=== PATIENT | male | born 1990 | race Caucasian/White ===

== ENCOUNTER 2021-08-22 14:05 | Emergency (ER) | payer OTHER, SELFPAY ==
[2021-08-22 14:45] VITALS: BP 133/78; PULSE 65; RESP 18; TEMP 37.4; O2SAT 95; BMI 22.4
--- NOTE | 2021-08-22 16:34 | CRLHL7_ITS ---
For Patients: As a result of the Century Cures Act, medical imaging exams and procedure reports are released immediately into your electronic medical record. You may view this report before your referring provider. If you have questions, please contact your health care provider. INDICATION: Blood in stool for 1 month. Worsening today.. TECHNIQUE: CT abdomen and pelvis acquired with 81 cc Isovue 370 IV contrast. COMPARISON: None. FINDINGS: Lower chest: Unremarkable. Liver: Unremarkable. Normal in size and attenuation. No suspicious masses. Gallbladder and bile ducts: Unremarkable. No stones or inflammation. No biliary dilatation. Pancreas: Unremarkable. No mass or inflammation. Spleen: Unremarkable. Normal in size. No masses. Adrenal glands: Unremarkable. No nodules. Kidneys: Unremarkable. No suspicious masses, stones, or hydronephrosis. GI tract: Unremarkable. Normal in caliber. No sign of mass or inflammation. Normal appendix. Vasculature: Abdominal aorta is normal in caliber. Mesenteric arteries are patent. Lymph nodes: No lymphadenopathy. Peritoneum/Abdominal Wall: Unremarkable. No sign of mass or infiltration. No free air or significant free fluid. Pelvis: Unremarkable. Bones: Unremarkable for age. IMPRESSION: No acute intra-abdominal process identified. Please note that all CT scans at this facility use dose modulation, iterative reconstruction, and/or weight-based dosing when appropriate to reduce radiation dose to as low as reasonably achievable. Dictated by Alessandro Castellon MD @ 08/22/2021 6:14:16 PM (Electronically Signed)
[2021-08-22 17:10] LABS: Basophils Absolute Auto 0.08 K/uL (0.00-0.30); Basophils Percent Auto 0.9 % (0.0-3.0); Eosinophils Percent Auto 8.1 % (0.0-7.0); Hematocrit 42.8 % (37.0-53.0); Hemoglobin* 14.8 gm/dL (13.5-17.5); Immature Granulocytes Abs Auto 0.01 K/uL (0.00-0.30); Lymphocytes Absolute Auto 3.05 K/uL (0.90-2.90); Lymphocytes Percent Auto 34.7 % (20-44); Mean Corpuscular HGB Conc 35 gm/dL (32-36); Mean Corpuscular Hemoglobin 29 pg (26-34); Mean Corpuscular Volume 83 fL (80-100); Neutrophils Absolute Auto 4.41 K/uL (1.7-7.0); Neutrophils Percent Auto 50.2 % (42.0-72.0); Platelet Count* 249 K/uL (140-440); RDW Coefficient of Variation % 12.9 % (11.5-15.5); Red Blood Count 5.14 m/uL (4.30-5.90); White Blood Count* 8.79 K/uL (4.50-11.00)
[2021-08-22 17:29] LABS: Slide Review Reflex No
[2021-08-22 17:34] LABS: Chloride* 106 mmol/L (96-114)
[2021-08-22 17:35] LABS: Albumin* 4.2 g/dL (3.3-5.0); Potassium* 3.9 mmol/L (3.6-5.1); Sodium* 138 mmol/L (135-149)
[2021-08-22 17:37] LABS: Creatinine* 1.1 mg/dL (0.5-1.5); Est. Creatinine Clearance* 101.11; Estimated Glomerular Filt Rate 91 ml/min
[2021-08-22 17:38] LABS: Alanine Aminotransferase* 19 U/L (4-50); Alkaline Phosphatase* 55 U/L (40-150); Aspartate Amino Transferase* 23 U/L (12-35); Bilirubin Direct* 0.3 mg/dL (0.0-0.5); Bilirubin Total* 0.7 mg/dL (0.1-1.5); Blood Urea Nitrogen* 16 mg/dL (5-24); Calcium* 9.1 mg/dL (8.4-10.6); Carbon Dioxide* 23 mmol/L (20-32); Glucose* 97 mg/dL (60-115); Total Protein* 6.8 g/dL (6.0-8.3)
[2021-08-22 17:42] LABS: C Reactive Protein* < 0.5 mg/dL (0.5-1.0)
--- NOTE | 2021-08-22 18:22 | ED.GENADULT ---
HPI - General Adult General Chief complaint: GI Bleed Stated complaint: Blood in stool Time Seen by Provider: 08/22/21 16:15 History of Present Illness HPI narrative: 31-year-old male coming in today complaining of rectal bleeding. He states that he had a bowel movement today and he had a good amount of blood in the toilet bowl really scared him was when he wiped toilet paper was saturated in blood. He states that this has happened in the past more than once, however if never been this much blood. He states that he generally has very loose stools, usually once a day. He states that when he has to go he has to get to a toilet right away because he has terrible cramping any generally can not hold it in. This has been happening for quite some time. He denies any nausea or vomiting. Denies any weight loss but states that he is usually thin rosamaria and cannot gain weight. He denies any chest pain or abdominal pain unless he is having the cramps described above. He states that sometimes his appetite comes and goes but currently has good appetite. He denies any family history of colon cancer or GI issues that he is aware of he has never been diagnosed or has any family history of Crohn's disease or ulcerative colitis. Related Data Home Medications Medication Instructions Recorded Confirmed No Known Home Medications 08/22/21 08/22/21 Allergies Allergy/AdvReac Type Severity Reaction Status Date / Time No Known Drug Allergies Allergy Verified 08/22/21 14:51 Review of Systems Status of ROS: Reports: 10 or more systems reviewed and unremarkable except as noted in History and below Exam Narrative: Exam Narrative: Well-nourished well-developed patient in no acute distress. Alert and oriented. Answers questions appropriately. Mood and affect are appropriate. Thoughts are goal oriented and rational. No tangential or magical thinking noted. Patient speaks in full sentences without needing to catch his breath. HEENT: Normocephalic atraumatic. Pupils are equally round reactive to light. Extraocular muscles are intact. Conjunctivae are moist without any icterus noted. Moist mucous membranes. Posterior pharynx is normal. Neck is soft without any lymphadenopathy or thyromegaly. No masses are appreciated. Cardiovascular: Heart is regular rate and rhythm S1 and S2 are present without any murmurs. Lungs: Clear to auscultation bilaterally no wheezes rhonchi or rales are appreciated. Patient takes deep breaths without any discomfort. Abdomen: Soft and nontender nondistended with normal bowel sounds. No guarding or rebound. No masses or organomegaly appreciated. Extremities: Bilateral lower extremities are without edema. Normal DP and PT pulses. Skin: Well perfused without any obvious rashes. Rectal exam: Normal rectal tone, no hemorrhoids, no active bleeding noted. Masses appreciated. Const: Vital Signs, click to edit/add: Vital Signs - 24 hr 08/22/21 14:45 Temperature 99.4 F Pulse Rate [Right Pulse Oximeter] 65 Respiratory Rate 18 Blood Pressure [Ri ght Upper Arm] 133/78 Pulse Oximetry 95 Course Vital Signs Vital signs: Initial Vital Signs Temperature 99.4 F 08/22/21 14:45 Temperature Source Temporal Artery Scan 08/22/21 14:45 Pulse Rate 65 08/22/21 14:45 Pulse Rhythm 08/22/21 14:45 Respiratory Rate 18 08/22/21 14:45 Blood Pressure 133/78 08/22/21 14:45 Blood Pressure Mean 96 08/22/21 14:45 Blood Pressure Position Sitting 08/22/21 14:45 Pulse Oximetry 95 08/22/21 14:45 Oxygen Delivery Method 08/22/21 14:45 Vital Signs Temperature 99.4 F 08/22/21 14:45 Pulse Rate 65 08/22/21 14:45 Respiratory Rate 18 08/22/21 14:45 Blood Pressure 133/78 08/22/21 14:45 Pulse Oximetry 95 08/22/21 14:45 Temperature 99.4 F 08/22/21 14:45 Pulse Rate 65 08/22/21 14:45 Respiratory Rate 18 08/22/21 14:45 Blood Pressure 133/78 08/22/21 14:45 Pulse Oximetry 95 08/22/21 14:45 Medical Decision Making MDM Narrative Medical decision making narrative: 31-year-old male with rectal bleeding, workup unremarkable today. Given the duration of his symptoms and what he describes with diarrhea and cramping in concerned about possibility of Crohn's disease. Patient will be scheduled for outpatient colonoscopy and follow up with primary care provider. Lab Data Lab results reviewed: Yes I reviewed the patient's lab results Labs: Lab Results 08/22/21 08/22/21 08/22/21 Range/Units 17:00 17:00 17:00 WBC 8.79 (4.50-11.00) K/uL RBC 5.14 (4.30-5.90) m/uL Hgb 14.8 (13.5-17.5) gm/dL Hct 42.8 (37.0-53.0) % MCV 83 (80-100) fL MCH 29 (26-34) pg MCHC 35 (32-36) gm/dL RDW Coeff of Lexy 12.9 (11.5-15.5) % Plt Count 249 (140-440) K/uL Neut % (Auto) 50.2 (42.0-72.0) % Lymph % (Auto) 34.7 (20-44) % [place] % (Auto) 6.0 (0.0-11.0) % Eos % (Auto) 8.1 H (0.0-7.0) % Baso % (Auto) 0.9 (0.0-3.0) % Neut # (Auto) 4.41 (1.7-7.0) K/uL Lymph # (Auto) 3.05 H (0.90-2.90) K/uL [place] # (Auto) 0.50 (0.00-0.90) K/UL Eos # (Auto) 0.70 H (0.00-0.50) K/uL Baso # (Auto) 0.08 (0.00-0.30) K/uL Abs Immat Gran (auto) 0.01 (0.00-0.30) K/uL Sodium 138 (135-149) mmol/L Potassium 3.9 (3.6-5.1) mmol/L Chloride 106 (96-114) mmol/L Carbon Dioxide 23 (20-32) mmol/L BUN 16 (5-24) mg/dL Creatinine 1.1 (0.5-1.5) mg/dL Estimated Creat Clear 101.11 Estimated GFR 91 ml/min Glucose 97 (60-115) mg/dL Calcium 9.1 (8.4-10.6) mg/dL Total Bilirubin 0.7 (0.1-1.5) mg/dL Direct Bilirubin 0.3 (0.0-0.5) mg/dL AST 23 (12-35) U/L ALT 19 (4-50) U/L Alkaline Phosphatase 55 (40-150) U/L C-Reactive Protein < 0.5 L (0.5-1.0) mg/dL Total Protein 6.8 (6.0-8.3) g/dL Albumin 4.2 (3.3-5.0) g/dL Vitamin B12 569 (243-894) pg/mL Imaging Data CT scan - abdomen: Attestation: I have reviewed the pertinent imaging results. Radiologist's impression: FINDINGS: Lower chest: Unremarkable. Liver: Unremarkable. Normal in size and attenuation. No suspicious masses. Gallbladder and bile ducts: Unremarkable. No stones or inflammation. No biliary dilatation. Pancreas: Unremarkable. No mass or inflammation. Spleen: Unremarkable. Normal in size. No masses. Adrenal glands: Unremarkable. No nodules. Kidneys: Unremarkable. No suspicious masses, stones, or hydronephrosis. GI tract: Unremarkable. Normal in caliber. No sign of mass or inflammation. Normal appendix. Vasculature: Abdominal aorta is normal in caliber. Mesenteric arteries are patent. Lymph nodes: No lymphadenopathy. Peritoneum/Abdominal Wall: Unremarkable. No sign of mass or infiltration. No free air or significant free fluid. Pelvis: Unremarkable. Bones: Unremarkable for age. IMPRESSION: No acute intra-abdominal process identified. Discharge Plan Discharge Clinical Impression: Bright red rectal bleeding Patient Disposition: Home, Self-Care Condition: Stable Additional Instructions: You will need to have an outpatient colonoscopy. If you have other episodes where there was significant amount of bleeding return for evaluation. Prescriptions: No Action No Known Home Medications 0RF Follow Up/Referrals: Provider,Not a Local [Primary Care Provider] - Stand Alone Forms: [employer] Info Instructions
[2021-08-22 18:27] LABS: Vitamin B12* 569 pg/mL (243-894)
[2021-08-22 18:44] VITALS: BP 133/78; PULSE 65; RESP 18; TEMP 37.4; O2SAT 95
[2021-08-22 18:45] VITALS: BP 112/70; PULSE 72; RESP 18; TEMP 37.4
--- NOTE | 2021-08-22 18:51 | ED.NURSE ---
Left voicemail for Endo Sales Administrator to call Pt to schedule outpatient colonoscopy.
[2021-08-22 18:54] LABS: Iron* 93 ug/dL (49-181)
[2021-08-22 19:12] LABS: Vitamin D 25 Hydroxy* 37 ng/mL (30-80)
--- NOTE | 2021-08-25 14:37 | ED.NURSE ---
in chart attempting to print order colonoscopy order for endo
== END 2021-08-22 18:45 | disposition home or self-care (01) ==
PROVIDERS: Emergency Provider Family Medicine
DX: K62.5 Hemorrhage of anus and rectum (principal)
CPT/HCPCS: 36415; 74177; 80048; 80076; 82306; 82607; 83540; 85025; 86140; 99284; Q9967

== ENCOUNTER 2021-09-06 07:12 | Outpatient (CLI) | payer OTHER, SELFPAY | END 2021-09-06 07:13 | disposition home or self-care (01) | LOC: OP CLINIC 07:13 | PROVIDERS: Visit Provider Surgery | DX: R19.7 Diarrhea, unspecified (principal); K92.1 Melena | CPT/HCPCS: 45380; 88305; 99153; J2250; J3010 ==

== ENCOUNTER 2022-06-10 22:26 | Emergency (ER) | payer SELFPAY ==
[2022-06-10 22:32] VITALS: BP 125/80; PULSE 69; RESP 16; TEMP 36.7; O2SAT 96; BMI 23.1
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
[2022-06-10 22:57] VITALS: BP 125/80; PULSE 69; RESP 16; TEMP 36.7
[2022-06-10 23:02] VITALS: BP 118/76; PULSE 71; RESP 16; TEMP 36.9; O2SAT 87
== END 2022-06-10 23:03 | disposition home or self-care (01) ==
LOC: ED 22:59
PROVIDERS: Emergency Provider Emergency Medicine Emergency Medical Services
DX: S70.01XA Contusion of right hip, initial encounter (principal); V00.848A Other accident with standing micro-mobility pedestrian conveyance, initial encounter
CPT/HCPCS: 99283; 99284

== ENCOUNTER 2023-02-03 14:17 | Emergency (ER) | payer OTHER, SELFPAY ==
[2023-02-03 14:24] VITALS: BP 119/75; PULSE 82; RESP 18; TEMP 36.1; O2SAT 96; BMI 23.1
--- NOTE | 2023-02-03 14:48 | CRLHL7_ITS ---
For Patients: As a result of the Century Cures Act, medical imaging exams and procedure reports are released immediately into your electronic medical record. You may view this report before your referring provider. If you have questions, please contact your health care provider. INDICATION: Right abdominal/flank pain. TECHNIQUE: CT abdomen and pelvis acquired with 83 cc Omnipaque 350 IV contrast. COMPARISON: August 22, 2021. FINDINGS: Lower chest: Scattered atelectasis. Liver: Unremarkable. Normal in size and attenuation. No suspicious masses. Gallbladder and bile ducts: Unremarkable. No stones or inflammation. No biliary dilatation. Pancreas: Unremarkable. No mass or inflammation. Spleen: Unremarkable. Normal in size. No masses. Adrenal glands: Unremarkable. No nodules. Kidneys: Unremarkable. No suspicious masses, stones, or hydronephrosis. GI tract: Moderate colonic stool burden. Normal in caliber. No sign of mass or inflammation. Normal appendix. Vasculature: Abdominal aorta is normal in caliber. Mesenteric arteries are patent. Lymph nodes: No lymphadenopathy. Peritoneum/Abdominal Wall: Unremarkable. No sign of mass or infiltration. No free air or significant free fluid. Pelvis: Unremarkable. Bones: Unremarkable for age. IMPRESSION: No acute intra-abdominal/pelvic abnormality. Moderate colonic stool burden. Please note that all CT scans at this facility use dose modulation, iterative reconstruction, and/or weight-based dosing when appropriate to reduce radiation dose to as low as reasonably achievable. Dictated by Abran Miller MD @ 02/03/2023 3:56:23 PM (Electronically Signed)
--- NOTE | 2023-02-03 14:49 | ED.GENADULT ---
HPI - General Adult General Chief complaint: Flank Pain Stated complaint: stomach pain, throwing up, fever Time Seen by Provider: 02/03/23 14:38 History of Present Illness HPI narrative: This 32-year-old male comes in reporting right-sided abdominal pain that began 3 days ago. He states that the pain now is also in his right flank region. He states that it is a constant pain and seems to be worse when lying down or standing up straight. He states that movement seems to make it worse. He has had some vomiting and loss of appetite. He also reports fever but arrives here with normal temperature. Related Data Previous Rx's Medication Instructions Recorded cyclobenzaprine 10 mg tablet 10 mg PO TID #15 tabs 02/03/23 ketorolac 10 mg tablet 10 mg PO Q8H 5 days #15 tabs 02/03/23 methylprednisolone 4 mg tablets in See Rx Instructions PO .COMPLEX 02/03/23 a dose pack (Medrol (Erasmo)) #21 ea ondansetron HCl 4 mg tablet 4 mg PO Q6H #10 tabs 02/03/23 Allergies Allergy/AdvReac Type Severity Reaction Status Date / Time No Known Drug Allergies Allergy Verified 08/22/21 14:51 Review of Systems Status of ROS: Reports: 10 or more systems reviewed and unremarkable except as noted in History and below Narrative: Constitutional: No fevers, no weight gain or loss. Eyes: No discharge. No vision changes. HENT: No congestion, no sore throat, no ear pain. Cardiovascular: No chest pain, no palpitations. Respiratory: No shortness of breath, no wheezes, no cough. Gastrointestinal: No diarrhea. Abdominal pain with some vomiting as described above. Genitourinary: No dysuria, no hematuria. Musculoskeletal: Normal range of motion. Skin: No rashes, no pruritis. Neurological: No dizziness, weakness, sensory change, speech change. Endo/Heme/Allergies: No bruising or bleeding. No polydipsia. Pysch: no suicidality, no anxiety, no insomnia. All other systems reviewed and are negative. [facility] Medical History (Updated 02/03/23 @ 16:13 by Patrick Rhodes MD) Screening for colon cancer ?Z12.11 - Encounter for screening for malignant neoplasm of colon (ICD-10) Social History Smoking Status: Never smoker How often do you have a drink containing alcohol: never AUDIT-C Alcohol total score: 0 Non-prescribed substance use: denies use Exam Narrative: Exam Narrative: Constitutional: Well-developed, well-nourished, no acute distress. HEENT: Normocephalic, atraumatic. Neck: Normal range of motion. Nontender. Supple. Heart: Regular. No murmurs. Normal rate. Intact distal pulses. Lungs: Clear to auscultation. No chest discomfort. No wheezes, rhonchi, or rales. Abdomen: Decreased bowel sounds. Right abdominal tenderness with tenderness included at McBurney's point. Rovsing sign is positive. Rebound tenderness is also present. Genitalia: Deferred. Back: No midline tenderness. Normal range of motion. Extremities: Normal range of motion. No injury. Skin: Intact. No rash. Warm. No erythema or pallor. Neurologic: No altered sensation. No weakness. Alert and oriented. Psychiatric: No suicidality. No anxiety or depression. No insomnia. Nursing notes and vitals signs are reviewed. Const: Vital Signs, click to edit/add: Vital Signs - 24 hr 02/03/23 14:24 Temperature 97.0 F L Pulse Rate [Pulse Oximeter] 82 Respiratory Rate 18 Blood Pressure [Ri ght Upper Arm] 119/75 Pulse Oximetry 96 Oxygen Delivery Me thod Room Air Course Vital Signs Vital signs: Initial Vital Signs Temperature 97.0 F L 02/03/23 14:24 Temperature Source Temporal Artery Scan 02/03/23 14:24 Pulse Rate 82 02/03/23 14:24 Pulse Rhythm Regular 02/03/23 14:24 Respiratory Rate 18 02/03/23 14:24 Blood Pressure 119/75 02/03/23 14:24 Blood Pressure Mean 89 02/03/23 14:24 Blood Pressure Position Sitting 02/03/23 14:24 Pulse Oximetry 96 02/03/23 14:24 Oxygen Delivery Method Room Air 02/03/23 14:24 Vital Signs Temperature 97.0 F L 02/03/23 14:24 Pulse Rate 82 02/03/23 14:24 Respiratory Rate 18 02/03/23 14:24 Blood Pressure 119/75 02/03/23 14:24 Pulse Oximetry 96 02/03/23 14:24 Oxygen Delivery Method Room Air 02/03/23 14:24 Temperature 97.0 F L 02/03/23 14:24 Pulse Rate 82 02/03/23 14:24 Respiratory Rate 18 02/03/23 14:24 Blood Pressure 119/75 02/03/23 14:24 Pulse Oximetry 96 02/03/23 14:24 Oxygen Delivery Method Room Air 02/03/23 14:24 Medical Decision Making MDM Narrative Medical decision making narrative: This 32-year-old male comes in with right abdominal pain and right flank pain as described above. He was generating enough concern for possible intra-abdominal process such as appendicitis to wear a CT scan of the abdomen and pelvis is obtained. This returns with no acute findings to explain his symptoms. His symptoms are somewhat positional and seeing results of his labs and imaging he may be having some musculoskeletal or nerve impingement issues that are cause for his discomfort. Patient did receive an IV dose of Toradol and is okay to go home. He received prescriptions for Toradol, Flexeril, Zofran, and Medrol Dosepak. Lab Data Labs: Lab Results 02/03/23 02/03/23 Range/Units 15:00 15:20 WBC 12.75 H (4.50-11.00) K/uL RBC 4.92 (4.30-5.90) m/uL Hgb 14.1 (13.5-17.5) gm/dL Hct 41.2 (37.0-53.0) % MCV 84 (80-100) fL MCH 29 (26-34) pg MCHC 34 (32-36) gm/dL RDW Coeff of Lexy 12.0 (11.5-15.5) % Plt Count 315 (140-440) K/uL Neut % (Auto) 74.3 H (42.0-72.0) % Lymph % (Auto) 15.7 L (20-44) % [place] % (Auto) 7.1 (0.0-11.0) % Eos % (Auto) 2.0 (0.0-7.0) % Baso % (Auto) 0.5 (0.0-3.0) % Neut # (Auto) 9.50 H (1.7-7.0) K/uL Lymph # (Auto) 2.00 (0.90-2.90) K/uL [place] # (Auto) 0.90 (0.00-0.90) K/UL Eos # (Auto) 0.30 (0.00-0.50) K/uL Baso # (Auto) 0.10 (0.00-0.30) K/uL Abs Immat Gran (auto) 0.10 (0.00-0.30) K/uL Imm/Tot Granulo (auto) 0.4 % Sodium 138 (135-149) mmol/L Potassium 4.4 (3.6-5.1) mmol/L Chloride 104 (96-114) mmol/L Carbon Dioxide 23 (20-32) mmol/L Anion Gap 11 (7-15) mEq/L BUN 12 (5-24) mg/dL Creatinine 0.9 (0.5-1.5) mg/dL Estimated Creat Clear 126.14 Estimated GFR 115 ml/min Glucose 110 (60-115) mg/dL Calcium 9.3 (8.4-10.6) mg/dL Imaging Data CT scan - abdomen: Radiologist's impression: No acute intra-abdominal/pelvic abnormality. Moderate colonic stool burden. Discharge Plan Discharge Clinical Impression: Acute right flank pain Patient Disposition: Home, Self-Care Condition: Stable Additional Instructions: Take medication as needed and indicated. Follow up with MD return if worsening. Prescriptions: New cyclobenzaprine 10 mg tablet 10 mg PO TID Qty: 15 0RF ondansetron HCl 4 mg tablet 4 mg PO Q6H Qty: 10 0RF ketorolac 10 mg tablet 10 mg PO Q8H 5 Days Qty: 15 0RF methylprednisolone [Medrol (Erasmo)] 4 mg tablets,dose pack See Rx Instructions .ROUTE .COMPLEX Qty: 21 0RF Rx Instructions: orally per package directions Follow Up/Referrals: Provider,Not a Local [Primary Care Provider] - Stand Alone Forms: [email or web address] Info Instructions
[2023-02-03 15:22] LABS: Chloride* 104 mmol/L (96-114); Potassium* 4.4 mmol/L (3.6-5.1); Sodium* 138 mmol/L (135-149)
[2023-02-03 15:25] LABS: Blood Urea Nitrogen* 12 mg/dL (5-24); Calcium* 9.3 mg/dL (8.4-10.6); Carbon Dioxide* 23 mmol/L (20-32); Creatinine* 0.9 mg/dL (0.5-1.5); Est. Creatinine Clearance* 126.14; Estimated Glomerular Filt Rate 115 ml/min; Glucose* 110 mg/dL (60-115)
[2023-02-03 15:33] LABS: Anion Gap 11 mEq/L (7-15)
[2023-02-03 15:34] LABS: Basophils Percent Auto 0.5 % (0.0-3.0); Hematocrit 41.2 % (37.0-53.0); Hemoglobin* 14.1 gm/dL (13.5-17.5); Immature Granulocytes Pct Auto 0.4 %; Lymphocytes Percent Auto 15.7 % (20-44); Mean Corpuscular HGB Conc 34 gm/dL (32-36); Mean Corpuscular Hemoglobin 29 pg (26-34); Mean Corpuscular Volume 84 fL (80-100); Monocytes Percent Auto 7.1 % (0.0-11.0); Neutrophils Percent Auto 74.3 % (42.0-72.0); Platelet Count* 315 K/uL (140-440); Red Blood Count 4.92 m/uL (4.30-5.90); White Blood Count* 12.75 K/uL (4.50-11.00)
[2023-02-03 15:37] LABS: Slide Review Reflex No
[2023-02-03] MEDS: KETOROLAC 15 MG/ML inj IVP (16:25)
== END 2023-02-03 16:26 | disposition home or self-care (01) ==
PROVIDERS: Emergency Provider Emergency Medicine Emergency Medical Services
DX: R10.9 Unspecified abdominal pain (principal)
CPT/HCPCS: 36415; 74177; 80048; 85025; 96374; 99284; 99285; J1885; Q9967